=== PATIENT | male | born 1960 | race Caucasian/White ===

== ENCOUNTER 2016-10-21 09:35 | Emergency (ER) | payer SELFPAY ==
[~2016-10-21] VITALS: Ht 172.7 cm; Wt 75.0 kg
[~2016-10-21 09:35] MED LIST: Z.0.NO CURRENT MEDS
[2016-10-21 09:36] VITALS: BP 187/107; PULSE 100; RESP 24; TEMP 98.5; O2SAT 95
[2016-10-21] MEDS ORDERED: LORazepam 2 MG/ML VIAL IM ONE (10:00)
[2016-10-21] MEDS ORDERED: CHLO25CA9 PO (10:11)
--- NOTE | 2016-10-21 10:13 | PD ---
HPI Chief Complaint: Medical Clearance Time Seen by Provider: 09:50 Travel History International Travel<30 days: No Contact w/Intl Traveler<30days: No Traveled to known affect area: No History of Present Illness HPI 655 Presents emergent complaint feeling restless and anxious difficulty sleeping ongoing for the past week or so. He normally drinks 4 beers a day or more. Does drink alcohol daily. About a week ago he cut significantly back because he started new job was having financial trouble. He drank 2 beers yesterday to try to help with the symptoms which it did seem to. He has no desire to stop drinking. He does not believe he has a problem with drinking. No medical problems. No other complaints. History Past Medical History Medical History: Denies Significant Hx Social History Alcohol Use: Yes (4 beers daily, significant cut back over last week) Tobacco Use: Yes (10 cigs/day) Allergies-Medications (Allergen,Severity, Reaction): Coded Allergies: No Known Allergies (Unverified , 10/21/16) Reported Meds & Prescriptions Reported Meds & Active Scripts Active Reported No Current Meds (Miscellaneous Medication) Misc Review of Systems Except as stated in HPI: all other systems reviewed are Neg Physical Exam Narrative GENERAL: Well-appearing 56-year-old man, little bit restless and anxious. SKIN: Focused skin assessment warm/dry. HEAD: Atraumatic. Normocephalic. CARDIOVASCULAR: Regular rate and rhythm. No murmur appreciated. RESPIRATORY: No accessory muscle use. Clear to auscultation. Breath sounds equal bilaterally. GASTROINTESTINAL: Abdomen soft, non-tender, nondistended. Hepatic and splenic margins not palpable. MUSCULOSKELETAL: No obvious deformities. No clubbing. No cyanosis. No edema. NEUROLOGICAL: Awake and alert. No obvious cranial nerve deficits. Motor grossly within normal limits. Normal speech. PSYCHIATRIC: Anxious and fidgety. Data Data Last Documented VS Vital Signs Date Time Temp Pulse Resp B/P (MAP) Pulse Ox O2 Delivery O2 Flow Rate FiO2 10/21/16 09:36 98.5 100 24 187/107 (133) 95 Room Air Orders Orders Lorazepam Inj (Ativan Inj) (10/21/16 10:00) [facility] Medical Decision Making Medical Screen Exam Complete: Yes Emergency Medical Condition: Yes Differential Diagnosis Anxiety, alcohol withdrawal, panic disorder, other Narrative Course 56-year-old male presents with alcohol withdrawal symptoms. He does not believe he has a problem with drinking and does not want to stop drinking. He is here with his . It seems possible. I believe he can do okay with a short course of Librium to help with withdrawal symptoms while he is cutting back on his drinking significantly. I explained to him in detail not to take the Librium while drinking. He was offered resources for help with alcoholism but declined. Diagnosis Primary Impression: Alcohol withdrawal Additional Instructions: Take Librium sparingly as needed for withdrawal symptoms. Do not take Librium and drink alcohol. Follow-up with your primary doctor in 2 days. Return to the emergency department for any new or worsening symptoms. Follow-up with Dwight Thomason if you desire help to quit drinking. Med/Other Pt SpecificInfo: Prescription(s) given Scripts Chlordiazepoxide HCl (Chlordiazepoxide HCl) 25 Mg Capsule 1 TAB PO Q12HR Y for WITHDRAWAL, #12 Prov: Sven Romero MD 10/21/16 Condition: Stable Sven Romero MD Oct 21, 2016 10:13
== END 2016-10-21 10:33 | disposition home or self-care (01) ==
LOC: NEPD 09:35
DX: F10.239 Alcohol dependence with withdrawal, unspecified (principal); F17.210 Nicotine dependence, cigarettes, uncomplicated
CPT/HCPCS: 96372; 99284; J2060

== ENCOUNTER 2018-04-22 19:23 | Inpatient (IN) ==
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
[2018-04-22] MEDS ORDERED: Sod Chloride 0.9% Inj 1,000 ML IV.SIG SCH (22:15)
[2018-04-22 22:30] LABS: Baso # (Auto) 0.1 th/mm3 (0.0-0.2); Baso % (Auto) 1.2 % (0.0-2.0); Eos # (Auto) 0.2 th/mm3 (0.0-0.4); Eos % (Auto) 2.7 % (0.0-4.0); Lymph # (Auto) 2.2 th/mm3 (1.0-4.8); Lymph % (Auto) 28.6 % (9.0-44.0); Mean Corpuscular HGB Conc 34.1 % (32.0-36.0); Mean Corpuscular Volume 90.9 fL (80.0-100.0); Mean Platelet Volume 6.6 fL (7.0-11.0); Mono # (Auto) 0.8 th/mm3 (0.0-0.9); Mono % (Auto) 9.9 % (0.0-8.0); Neut # (Auto) 4.4 th/mm3 (1.8-7.7); Neut % (Auto) 57.6 % (16.0-70.0); Platelet Count 302 th/mm3 (150-450); Red Blood Count 4.19 mil/mm3 (4.50-5.90); White Blood Count 7.6 th/mm3 (4.0-11.0)
[2018-04-22] MEDS: Ciprofloxacin 500 MG Tablet PO SCH (22:32)
[2018-04-22 22:42] LABS: Alanine Aminotransferase 73 U/L (12-78)
[2018-04-22 22:44] LABS: Alkaline Phosphatase 143 U/L (45-117); Total Protein 8.5 g/dL (6.4-8.2)
[2018-04-22 22:55] LABS: Anion Gap 8 meq/L (5-15); Aspartate Aminotransferase 73 U/L (15-37); Blood Urea Nitrogen 13 mg/dL (7-18); Calcium 8.9 mg/dL (8.5-10.1); Carbon Dioxide 24.2 meq/L (21.0-32.0); Chloride 103 meq/L (98-107); Glomerular Filtration Rate Greater Than 89 mL/min (>89); Glucose,Random 114 mg/dL (74-106); Potassium 4.2 meq/L (3.5-5.1); Sodium 135 meq/L (136-145)
[2018-04-22] MEDS ORDERED: Vancomycin Inj 1,250 MG in Sodium Chlor 0.9% Inj 250 ML IV.SIG ONE ×2 (23:00→23:09)
[2018-04-22] MEDS ORDERED: Vancomycin Consult Pharmacy OTHER PRN (23:07)
[2018-04-22] MEDS ORDERED: Bisacodyl 10 MG Supp RECTAL PRN (23:10)
[2018-04-22] MEDS ORDERED: Acetaminophen 325 MG Tablet PO PRN (23:10)
[2018-04-22] MEDS: Piperacil/Tazo 4.5 GM Premix 4.5 GM/100 ML BAG IV.SIG SCH (23:54)
[2018-04-23 05:18] LABS: Baso # (Auto) 0.1 th/mm3 (0.0-0.2); Eos # (Auto) 0.2 th/mm3 (0.0-0.4); Eos % (Auto) 3.2 % (0.0-4.0); Hematocrit 34.3 % (39.0-51.0); Hemoglobin 11.9 gm/dL (13.0-17.0); Lymph % (Auto) 32.1 % (9.0-44.0); Mean Corpuscular HGB Conc 34.7 % (32.0-36.0); Mean Corpuscular Hemoglobin 32.1 pg (27.0-34.0); Mean Corpuscular Volume 92.4 fL (80.0-100.0); Mean Platelet Volume 6.6 fL (7.0-11.0); Mono # (Auto) 0.7 th/mm3 (0.0-0.9); Mono % (Auto) 11.8 % (0.0-8.0); Neut # (Auto) 3.2 th/mm3 (1.8-7.7); Neut % (Auto) 51.9 % (16.0-70.0); Platelet Count 232 th/mm3 (150-450); Red Blood Count 3.71 mil/mm3 (4.50-5.90); White Blood Count 6.2 th/mm3 (4.0-11.0)
[2018-04-23 05:43] LABS: Albumin 2.5 g/dL (3.4-5.0); Anion Gap 8 meq/L (5-15); Aspartate Aminotransferase 58 U/L (15-37); Blood Urea Nitrogen 11 mg/dL (7-18); Calcium 8.4 mg/dL (8.5-10.1); Carbon Dioxide 22.2 meq/L (21.0-32.0); Chloride 107 meq/L (98-107); Glomerular Filtration Rate Greater Than 89 mL/min (>89); Glucose,Random 92 mg/dL (74-106); Potassium 3.9 meq/L (3.5-5.1); Sodium 137 meq/L (136-145)
[2018-04-23 05:44] LABS: Alanine Aminotransferase 61 U/L (12-78)
[2018-04-23 05:46] LABS: Alkaline Phosphatase 102 U/L (45-117); Total Protein 7.2 g/dL (6.4-8.2)
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
[2018-04-23] MEDS: Sod Chloride 0.9% Inj 1,000 ML IV.CONT SCH ×3 (08:16→21:06)
[2018-04-23] MEDS: Piperacil/Tazo 4.5 GM Premix 4.5 GM/100 ML BAG IV.SIG SCH ×3 (08:17→17:44)
[2018-04-23] MEDS: Ciprofloxacin 500 MG Tablet PO SCH ×2 (08:18→21:06)
[2018-04-23] MEDS: Senna/Docusate Sodium 8.6/50 MG Tablet PO SCH ×2 (08:18→21:08)
--- NOTE | 2018-04-23 10:41 | P.CON ---
History of Present Illness Service: Plastic surgery Consult date: 04/23/18 Reason for Consult: Right anterolateral lower leg wound Primary Care Provider: UNKNOWN Chief Complaint: Right leg pain History of Present Illness: 58-year-old male who injured his right lower leg 2 weeks ago, causing a superficial degloving injury to the right anterolateral lower leg, which was repaired in the emergency department. Patient reports that he took the antibiotics that he was given. Over the last week, he reports progressively worsening pain/drainage/malodor. Patient denies fever. Patient reports normal sensation to the area. Patient reports that he now has moderate burning pain to the right anterolateral thigh. Except as noted in the HPI review of systems negative to presenting complaint No known drug allergies Past medical history/past surgical history Appendectomy Smokes cigarettes daily, alcohol Medication list reviewed (Ciprofloxacin, Zosyn, vancomycin) Family history noncontributory to presenting complaint PMFSH - History History Provided By: Patient - Medical History Medical History: Medical History (Last Reviewed 04/23/18 @ 06:42 by Bradford Medina MD) Patient denies medical problems - Surgical History Surgical History: Surgical History (Last Reviewed 04/23/18 @ 06:43 by Bradford Medina MD) History of appendectomy - Tobacco History Second Hand Smoke Exposure: Yes Tobacco Use In Past 30 Days: Yes Smoking Status: Current every day smoker Tobacco Type: Cigarettes - Alcohol History How Often Do You Have a Drink Containing Alcohol: 4 or more times a week - Substance Use History Substance History: No History of Abuse - Travel History Recent Travel in the [place] Within the Last 8 Weeks: No Recent Travel Out of the Country Within the Last 8 Weeks: No - Immunization History Tetanus Immunization: Unsure Medications and Allergies Active Medications: Active Medications Acetaminophen (Tylenol) 650 mg PO Q4H PRN PRN Reason: Temp > 100.4 Al Hydroxide/Mg Hydroxide (Milk Of Magnesia Liq) 30 ml PO Q12H PRN PRN Reason: Mild Constipation Albuterol (Duoneb Neb (Prn)) 1 ampul NEB Q2HR NEB PRN PRN Reason: SHORTNESS OF BREATH/WHEEZING Bisacodyl (Dulcolax Supp) 10 mg RECTAL DAILY PRN PRN Reason: SEVERE CONSITIPATION Ciprofloxacin HCl (Cipro) 500 mg PO Q12HR [facility] Last Admin: 04/23/18 08:18 Dose: 500 mg Clindamycin Phosphate 600 mg/ (Sodium Chloride) 104 mls @ 200 mls/hr IV.SIG Q8H [facility] Last Infusion: 04/23/18 08:05 Dose: 0 mls/hr Piperacillin/Tazobactam/Dextrose (Zosyn 4.5 Gm Premix) 4.5 gm in 100 mls @ 200 mls/hr IV.SIG Q6H [facility] Last Infusion: 04/23/18 08:51 Dose: Infused Sodium Chloride (Ns Inj) 1,000 mls @ 100 mls/hr IV.CONT .Q10H [facility] Last Admin: 04/23/18 08:16 Dose: 100 mls/hr Vancomycin HCl 1,250 mg/ (Sodium Chloride) 262.5 mls @ 250 mls/hr IV.SIG Q12H [facility] Lactulose (Lactulose Liq) 30 ml PO DAILY PRN PRN Reason: SEVERE CONSITIPATION Miscellaneous Information ([facility] Ordered Lab Info) 0 each OTHER ONCE ONE Stop: 04/24/18 11:46 Ondansetron HCl (Zofran Inj) 4 mg IV.PUSH Q6H PRN PRN Reason: NAUSEA OR VOMITING Pharmacy Profile Note (Vancomycin Consult Pharmacy) 1 each OTHER UNSCH PRN PRN Reason: Pharmacy to dose Senna/Docusate Sodium (Sidra-Colace) 1 tab PO BID [facility] Last Admin: 04/23/18 08:18 Dose: 1 tab Sennosides (Senokot) 17.2 mg PO Q12H PRN PRN Reason: Moderate Constipation Silver Sulfadiazine (Silvadene 1% Cream (50 Gm)) 1 applicatio TOPICAL DAILY [facility] Sodium Chloride (Ns Flush) 2 ml IV.FLUSH BID [facility] Last Admin: 04/23/18 08:18 Dose: 2 ml Sodium Chloride (Ns Flush) 2 ml IV.FLUSH PRN PRN PRN Reason: FLUSH AFTER USING IV ACCESS Allergies Allergy/AdvReac Type Severity Reaction Status Date / Time No Known Allergies Allergy Verified 04/22/18 19:41 Physical Exam Vital signs: Vital Signs 04/22/18 19:42 04/22/18 22:20 04/23/18 02:30 Temperature 99.6 F 99.0 F Pulse Rate 124 H 84 83 Respiratory Rate 16 16 16 Blood Pressure 187/90 H 140/78 140/75 Pulse Oximetry 98 96 97 04/23/18 07:55 Temperature 98.5 F Pulse Rate 74 Respiratory Rate 20 Blood Pressure 126/67 Pulse Oximetry 96 Intake & Output 04/22/18 04/23/18 04/23/18 18:59 06:59 18:59 Intake Total 1466.5 / 1466.5 100 / 100 Balance 1466.5 / 1466.5 100 / 100 Weight 70.307 kg Intake: IV 1466.5 / 1466.5 100 / 100 Cleocin Inj 600 MG In NS Inj 104 / 104 0 / 0 100 ML @ 200 mls/hr IV.SIG Q8H [facility] Rx#:[id number] Zosyn 4.5 GM Premix 4.5 gm In 100 / 100 100 / 100 100 ml @ 200 mls/hr IV.SIG Q6H [facility] Rx#:[id number] NS Inj 1,000 ML @ 1000 mls/hr 1000 / 1000 IV.SIG BOLUS [facility] Rx#:[id number] Vancomycin Inj 1,250 MG In NS 262.5 / 262.5 Inj 250 ML @ 250 mls/hr IV.SIG ONCE ONE Rx#:[id number] Narrative: No apparent anxiety Moist mucous membranes PERRLA Skin without rash Respirations unlabored Moves all 4 extremities to command Digits warm well perfused Right lower extremity Anterolateral thigh with 5 cm transverse by 6 cm longitudinal area of necrotic desiccated eschar Severely malodorous No exposed vital structures Anterolateral tibia with thick viable soft tissue covering Moderate circumferential blanching erythema for several centimeters in all dimensions Moderately tender Results - Labs CBC & Chem 7: 04/23/18 03:45 04/23/18 03:45 Labs: Laboratory Results - last 24 hr 04/22/18 04/22/18 04/22/18 22:09 22:09 22:15 WBC 7.6 RBC 4.19 L Hgb 13.0 Hct 38.0 L MCV 90.9 MCH 31.0 MCHC 34.1 RDW 15.0 Plt Count 302 MPV 6.6 L Neut % (Auto) 57.6 Lymph % (Auto) 28.6 Gonzales % (Auto) 9.9 H Eos % (Auto) 2.7 Baso % (Auto) 1.2 Neut # (Auto) 4.4 Lymph # (Auto) 2.2 Gonzales # (Auto) 0.8 Eos # (Auto) 0.2 Baso # (Auto) 0.1 WBC Differential . Differential Comment Auto diff final Sodium 135 L Potassium 4.2 Chloride 103 Carbon Dioxide 24.2 Anion Gap 8 BUN 13 Creatinine 0.83 Estimated GFR Greater than 89 Random Glucose 114 H Lactic Acid 0.9 Calcium 8.9 Total Bilirubin 0.4 AST 73 H ALT 73 Alkaline Phosphatase 143 H Total Protein 8.5 H Albumin 3.0 L 04/23/18 04/23/18 03:45 03:45 WBC 6.2 RBC 3.71 L Hgb 11.9 L Hct 34.3 L MCV 92.4 MCH 32.1 MCHC 34.7 RDW 15.0 Plt Count 232 MPV 6.6 L Neut % (Auto) 51.9 Lymph % (Auto) 32.1 Gonzales % (Auto) 11.8 H Eos % (Auto) 3.2 Baso % (Auto) 1.0 Neut # (Auto) 3.2 Lymph # (Auto) 2.0 Gonzales # (Auto) 0.7 Eos # (Auto) 0.2 Baso # (Auto) 0.1 WBC Differential . Differential Comment Auto diff final Sodium 137 Potassium 3.9 Chloride 107 Carbon Dioxide 22.2 Anion Gap 8 BUN 11 Creatinine 0.82 Estimated GFR Greater than 89 Random Glucose 92 Lactic Acid Calcium 8.4 L Total Bilirubin 0.6 AST 58 H ALT 61 Alkaline Phosphatase 102 Total Protein 7.2 D Albumin 2.5 L Assessment and Plan - Assessment (1) Leg wound, right Code(s): S81.801A - Unspecified open wound, right lower leg, initial encounter Status: Acute (2) Cellulitis of leg, right Code(s): L03.115 - Cellulitis of right lower limb Status: Acute (3) Necrosis of surgical wound Code(s): I97.89 - Other postprocedural complications and disorders of the circulatory system, not elsewhere classified; I96 - Gangrene, not elsewhere classified Status: Acute - Plan 58-year-old male with right anterolateral lower leg trauma, now with necrosis of overlying cutaneous flap and cellulitis Risk benefits alternative treatments discussed All questions answered the patient expressed understanding Patient elected to assume the risks of debridement of the above necrotic desiccated eschar Following informed consent, the above eschar was sharply debrided at the bedside until bleeding viable skin edges were encountered Viable fascia at the base of the wound No undrained fluid appreciated Consider dressing the wound with Silvadene daily Please call with questions
[2018-04-23] MEDS: Vancomycin Inj 1,250 MG in Sodium Chlor 0.9% Inj 250 ML IV.SIG SCH (13:03)
--- NOTE | 2018-04-23 16:52 | P.PNIM ---
Mr. Madden is a pleasant 58-year-old male who was admitted to the hospital due to worsening acute right lower extremity cellulitis. Patient was started on broad-spectrum antibiotics. Plastic surgery was consulted. Plastic surgery performed bedside I&D and recommended dressing changes with Silvadene. Will follow the wound cultures. We can likely de-escalate antibiotics tomorrow to clindamycin + Keflex or Keflex + Doxycycline for 7-10 days.
[2018-04-24] MEDS: Piperacil/Tazo 4.5 GM Premix 4.5 GM/100 ML BAG IV.SIG SCH ×3 (00:19→15:12)
[2018-04-24] MEDS: Vancomycin Inj 1,250 MG in Sodium Chlor 0.9% Inj 250 ML IV.SIG SCH ×2 (00:19→15:11)
[2018-04-24] MEDS: Senna/Docusate Sodium 8.6/50 MG Tablet PO SCH (09:09)
[2018-04-24] MEDS: Ciprofloxacin 500 MG Tablet PO SCH (09:09)
[2018-04-24] MEDS: Sod Chloride 0.9% Inj 1,000 ML IV.CONT SCH (09:52)
--- NOTE | 2018-04-24 10:31 | P.PNIM ---
Subjective Interval history: Follow-up for right lower extremity cellulitis, necrosis. Patient underwent bedside debridement by plastic surgery on 04/23/2018. Currently doing well. No fever or chills. Ambulating well. Physical Exam Vital signs: Vital Signs 04/23/18 13:45 04/23/18 16:00 04/23/18 20:00 Temperature 98.4 F 98.8 F Pulse Rate 77 71 79 Respiratory Rate 18 14 20 Blood Pressure 128/74 118/78 144/82 H Pulse Oximetry 97 97 04/24/18 08:00 Temperature 98.6 F Pulse Rate 86 Respiratory Rate 20 Blood Pressure 140/77 Pulse Oximetry 97 Intake & Output 04/23/18 04/24/18 04/24/18 18:59 06:59 18:59 Intake Total 1866.5 / 1866.5 2050.5 / 2050.5 1204 / 1204 Balance 1866.5 / 1866.5 2050.5 / 2050.5 1204 / 1204 Weight 70.378 kg Intake: IV 1566.5 / 1566.5 1670.5 / 1670.5 1204 / 1204 NS Inj 1,000 ML @ 100 mls/hr IV 1000 / 1000 1000 / 1000 1000 / 1000 .CONT .Q10H [facility] Rx#:[id number] Cleocin Inj 600 MG In NS Inj 104 / 104 208 / 208 104 / 104 100 ML @ 200 mls/hr IV.SIG Q8H [facility] Rx#:[id number] Zosyn 4.5 GM Premix 4.5 gm In 200 / 200 200 / 200 100 / 100 100 ml @ 200 mls/hr IV.SIG Q6H [facility] Rx#:[id number] Vancomycin Inj 1,250 MG In NS 262.5 / 262.5 262.5 / 262.5 Inj 250 ML @ 250 mls/hr IV.SIG Q12H [facility] Rx#:[id number] Oral 300 / 300 380 / 380 Other: # Voids 3 Weight On Admission 70.378 kg Narrative: GENERAL: Well-nourished, well-developed patient. SKIN: Warm and dry. HEAD: Normocephalic. EYES: No scleral icterus. No injection or drainage. NECK: Supple, trachea midline. No JVD or lymphadenopathy. CARDIOVASCULAR: Regular rate and rhythm without murmurs, gallops, or rubs. RESPIRATORY: Breath sounds equal bilaterally. No accessory muscle use. GASTROINTESTINAL: Abdomen soft, non-tender, nondistended. MUSCULOSKELETAL: No cyanosis, or edema. Right lower extremity below-knee wrapped in dressing. No swelling noted. Patient is able to ambulate well. BACK: Nontender without obvious deformity. No CVA tenderness. Results Labs CBC & Chem 7: 04/23/18 03:45 04/23/18 03:45 Labs: Microbiology 04/22/18 22:09 Wound - Leg Gram Stain - Final Assessment and Plan (1) Leg wound, right: Code(s): S81.801A - Unspecified open wound, right lower leg, initial encounter Status: Acute (2) Cellulitis of leg, right: Code(s): L03.115 - Cellulitis of right lower limb Status: Acute (3) Necrosis of surgical wound: Code(s): I97.89 - Other postprocedural complications and disorders of the circulatory system, not elsewhere classified; I96 - Gangrene, not elsewhere classified Status: Acute Plan Mr. Madden is a pleasant 58-year-old male who was admitted to the hospital due to right lower extremity cellulitis, necrosis. He required bedside debridement by plastic surgery on 04/23/2018. Acute right lower extremity cellulitis Patient is currently on vancomycin and Zosyn as well as clindamycin. Status post I&D at bedside by plastic surgery We will consider discharging patient this afternoon on ciprofloxacin and clindamycin or doxycycline to cover Pseudomonas, anaerobes as well as MRSA Right proximal fibular fracture Occurred 2 weeks ago. Nondisplaced. Patient is ambulating well. Full code. Ambulation. Discharge plan: Possible discharge later today. Progress Note: Quality VTE Deep Vein Thrombosis/Pulmonary Embolism Present on Admission: No _ (1) Leg wound, right Qualifiers: Encounter type:
[2018-04-24] MEDS ORDERED: Pharmacy Ordered Lab Info OTHER ONE (11:45)
[2018-04-24 12:44] VITALS: BP 131/75; PULSE 77; RESP 18; TEMP 98.1; O2SAT 96
== END 2018-04-24 18:30 | disposition home or self-care (01) | DRG 300 ==
LOC: NEPB 19:23 → NEDA 19:23 → OBSVTOIN 23:10 → NEDH 04-23 04:37 → H7ONC 04-23 14:13
PROVIDERS: ADMIT Hospitalist; ATTEND Hospitalist
DX: F17.210 Nicotine dependence, cigarettes, uncomplicated; I96 Gangrene, not elsewhere classified; V19.3XXD Pedal cyclist (driver) (passenger) injured in unspecified nontraffic accident, subsequent encounter; S82.831D Other fracture of upper and lower end of right fibula, subsequent encounter for closed fracture with routine healing; B95.2 Enterococcus as the cause of diseases classified elsewhere; L03.115 Cellulitis of right lower limb
CPT/HCPCS: 80053; 83605; 85025; 86403; 87070; 87077; 87186; 87205; 90765; 96365; 99285; J2543; J3370; J7030; J7050